=== PATIENT | female | born 1945 | race Caucasian/White ===

== ENCOUNTER 2018-08-30 13:50 | Inpatient (IN) | payer MEDICARE ==
[~2018-08-30] VITALS: Ht 154.9 cm; Wt 69.5 kg
--- NOTE | 2018-08-30 13:58 | NUR ---
PT ARRIVES TO ROOM 13 WITH SIGNIFICANT CHEST PAIN THAT RADIATED TO HER BACK. EKG DONE, NTG PROVIDED. EDP AT BEDSIDE IMMEDIATELY UPON ARRIVAL.
[2018-08-30 14:10] LABS: GFR > 60 ML/MIN (>=60 (CALC)); GFR FOR AFR.AMER. > 60 ML/MIN (>=60 (CALC))
[2018-08-30 14:14] LABS: HEMATOCRIT 41.7 % (37.0-47.0); HEMOGLOBIN 13.3 g/dl (12.0-16.0); IMMATURE GRANULOCYTES 0.3 % (0.0-5.0); MEAN CELL VOLUME 89.3 fL CALC (80.0-100.0); MEAN CORPUSCULAR HGB 28.5 pG CALC (26.0-32.0); MEAN CORPUSCULAR HGB CONC 31.9 g/L CALC (32.0-36.0); NEUT# 5.86 thou/uL (2.00-7.15); RED BLOOD COUNT 4.67 mill/uL (4.20-5.60); RED CELL DISTRI WIDTH 13.1 % (11.5-15.5)
[2018-08-30 14:32] LABS: ANION GAP 15 (6-22 (CALC)); BUN 15 mg/dL (8-23); BUN/CREATININE RATIO 23 (12-20 (CALC)); CARBON DIOXIDE 25 mmol/l (22-30); CHLORIDE 107 mmol/l (95-108); CREATININE 0.7 mg/dL (0.5-1.0); GFR > 60 ML/MIN (>=60 (CALC)); GFR FOR AFR.AMER. > 60 ML/MIN (>=60 (CALC)); POTASSIUM 4.2 mmol/l (3.5-5.1); SODIUM 142 mmol/l (137-146)
--- NOTE | 2018-08-30 15:00 | NUR ---
PT TO CT AND BACK TO R/O DISSECTION. NTG DRIP STARTED, NOW AT 20 MCG/MIN. GI COCKTAIL DID NOT HELP. MORPHINE FINALLY DID BRING SOME RELIEF. SEVERAL VISITORS ARE ROTATING AT BEDSIDE.
[2018-08-30 15:12] LABS: ALBUMIN 4.6 g/dL (3.2-5.0); ALKALINE PHOSPHATASE 79 u/l (38-126); BILIRUBIN, TOTAL 0.5 mg/dL (0.0-1.4); SGOT/AST 29 u/l (9-36); TOTAL PROTEIN 7.6 g/dL (6.3-8.2)
--- NOTE | 2018-08-30 15:22 | NUR ---
PT STATES RELIEF TO BACK WITH MORPHINE. IV NTG HAS HAD NO EFFECT ON PAIN. PT AMBULATORY TO BR WITH STANDBY ASSIST, FRIEND HELPING. PT AWARE OF PENDING ADMISSION.
[2018-08-30] MEDS ORDERED: LOSARTAN POT25 MG PO (15:46)
[2018-08-30] MEDS ORDERED: LOPRESSOR25 MG PO (15:46)
[2018-08-30] MEDS ORDERED: VIT C/ACEROL500 M1 PO (15:47)
[2018-08-30] MEDS ORDERED: MULTI VIT PO (15:47)
[2018-08-30] MEDS ORDERED: ZETIA10 MG PO (15:47)
[2018-08-30] MEDS ORDERED: B-COMPLE7 PO (15:48)
[2018-08-30] MEDS ORDERED: VITAMIN D-31000 UNI1 PO (15:48)
[2018-08-30] MEDS ORDERED: CURCUMIN 95500 MG PO (15:49)
[2018-08-30] MEDS ORDERED: FISH OIL1000 MG PO (15:50)
[2018-08-30] MEDS ORDERED: PRIMROSE OI1 PO (15:50)
[2018-08-30] MEDS ORDERED: ASPIRIN81 MG PO (15:51)
[2018-08-30 15:53] LABS: URINE BILIRUBIN - DIPSTICK NEGATIVE (NEGATIVE); URINE BLOOD DIPSTICK NEGATIVE (NEGATIVE); URINE COLOR YELLOW; URINE GLUCOSE - DIPSTICK NEGATIVE (NEGATIVE); URINE KETONE TRACE mg/dL (NEGATIVE); URINE LEUK ESTERASE NEGATIVE (NEGATIVE); URINE NITRITE - DIPSTICK NEGATIVE (Negative); URINE PH 8.5 (4.5-8.0); URINE PROTEIN - DIPSTICK NEGATIVE (NEG-TRACE); URINE UROBILINOGEN - DIPSTICK 0.2 E.U./dL (0.2)
[2018-08-30] MEDS ORDERED: MACRODANTIN100 MG PO (16:40)
--- NOTE | 2018-08-30 17:02 | NUR ---
PT AWARE OF PENDING ADMISSION AND THE EXPECTED TIME WHEN SHE COULD BE TAKEN UPSTAIRS. REMAINS AT BEDSIDE. PT UPDATED ON NEGATIVE TROPONIN LEVELS, WELL NEGATIVE UTI.
--- NOTE | 2018-08-30 18:11 | NUR ---
MEAL TRAY PROVIDED. NO CHANGE IN STATUS NOTED.
--- NOTE | 2018-08-30 19:49 | NUR ---
REPORT PROVIDED TO RONEN, TO KYRA SOON.
--- NOTE | 2018-08-30 20:30 | NUR ---
PT ARRIVES TO THE FLOOR VIA STRECHER WITH JORDY AND SPOUSE IN STABLE CONDITION. PT AMBULATED WITH STEADY GAIT TO BED. PT IS A&0 x3. ASSESMENT COMPLETED AT THIS TIME(SEE INTERVENTIONS) LUNG SOUNDS CLEAR, BOWEL SOUNDS ACTIVE, HEART SOUNDS NORMAL, NO SWELLING OR EDEMA NOTED. IV FLUSHES WELL. PT IS NOT HAVING ANY PAIN AT THIS TIME, ADVISED TO REPORT CHEST PAIN SOON POSSIBLE. CALL MCPHERSON IN REACH. WILL CONTINUE TO MONITOR.
[2018-08-30 22:47] VITALS: BP 150/69
--- NOTE | 2018-08-31 | NUR ---
PT RESTING IN BED WITH LIGHTS OFF AND EYES CLOSED. NO S/S OF DISTRESS NOTED. CALL MCPHERSON IN REACH. WILL CONTINUE TO MONITOR.
[2018-08-31 04:26] VITALS: BP 143/72
[2018-08-31 05:10] LABS: HEMATOCRIT 36.9 % (37.0-47.0); HEMOGLOBIN 11.7 g/dl (12.0-16.0); IMMATURE GRANULOCYTES 0.4 % (0.0-5.0); MEAN CELL VOLUME 89.6 fL CALC (80.0-100.0); MEAN CORPUSCULAR HGB 28.4 pG CALC (26.0-32.0); MEAN CORPUSCULAR HGB CONC 31.7 g/L CALC (32.0-36.0); NEUT# 7.06 thou/uL (2.00-7.15); RED BLOOD COUNT 4.12 mill/uL (4.20-5.60); RED CELL DISTRI WIDTH 13.2 % (11.5-15.5)
[2018-08-31 05:26] LABS: ALBUMIN 3.8 g/dL (3.2-5.0); ALKALINE PHOSPHATASE 74 u/l (38-126); AMYLASE 40 u/l (30-110); ANION GAP 14 (6-22 (CALC)); BILIRUBIN, TOTAL 0.4 mg/dL (0.0-1.4); BUN 15 mg/dL (8-23); BUN/CREATININE RATIO 27 (12-20 (CALC)); CARBON DIOXIDE 24 mmol/l (22-30); CHLORIDE 104 mmol/l (95-108); CREATININE 0.5 mg/dL (0.5-1.0); GFR > 60 ML/MIN (>=60 (CALC)); GFR FOR AFR.AMER. > 60 ML/MIN (>=60 (CALC)); LIPASE 73 u/l (23-300); MAGNESIUM 2.1 mg/dL (1.6-2.3); POTASSIUM 3.9 mmol/l (3.5-5.1); SGOT/AST 17 u/l (9-36); SODIUM 137 mmol/l (137-146); TOTAL PROTEIN 6.3 g/dL (6.3-8.2)
[2018-08-31 07:51] VITALS: BP 130/53
--- NOTE | 2018-08-31 08:15 | NUR ---
ASSESSMENT DONE. TELE IN PLACE. PT DENIES ANY PAIN AT THIS TIME. RESPS EVEN AND UNLABORED. 18 RAC THAT APPEARS HEALTHY. SAFETY PRECAUTIONS REINFORCED AND CALL LIGHT IN REACH.
--- NOTE | 2018-08-31 09:45 | NUR ---
AT BEDSIDE TO ASESS PT AND DISCUSS POC WITH PT.
--- NOTE | 2018-08-31 11:58 | NUR ---
PT IS RESTING IN BED. IN ROOM. PT STATED SHE DOES WANT TO HAVE SURGERY TOMORROW. PT DENIES ANY OTHER NEEDS AT THIS TIME. CALL LIGHT IN REACH. CALLED DR. BHAGAT RE: PT WANTS TO HAVE SURGERY TOMORROW. STATED HE WILL SET IT UP WITH THE OR.
[2018-08-31 13:10] VITALS: BP 136/70
--- NOTE | 2018-08-31 15:30 | NUR ---
PT AMBULATING IN THE HALLWAY WITH AT SIDE. NO S/S OF DISTRESS NOTED. TELE IN PLACE.
[2018-08-31 19:00] VITALS: BP 119/66
[2018-08-31 23:57] VITALS: BP 119/66
[2018-09-01] VITALS (12 sets, daily range): BP systolic 118–178; BP diastolic 49–72
[2018-09-01 04:45] LABS: HEMATOCRIT 35.8 % (37.0-47.0); HEMOGLOBIN 11.3 g/dl (12.0-16.0); IMMATURE GRANULOCYTES 0.4 % (0.0-5.0); MEAN CELL VOLUME 89.5 fL CALC (80.0-100.0); MEAN CORPUSCULAR HGB 28.3 pG CALC (26.0-32.0); MEAN CORPUSCULAR HGB CONC 31.6 g/L CALC (32.0-36.0); NEUT# 3.59 thou/uL (2.00-7.15); RED CELL DISTRI WIDTH 13.1 % (11.5-15.5)
[2018-09-01 05:13] LABS: ALBUMIN 3.6 g/dL (3.2-5.0); ALKALINE PHOSPHATASE 70 u/l (38-126); AMYLASE 45 u/l (30-110); ANION GAP 12 (6-22 (CALC)); BILIRUBIN, TOTAL 0.6 mg/dL (0.0-1.4); BUN 11 mg/dL (8-23); BUN/CREATININE RATIO 17 (12-20 (CALC)); CARBON DIOXIDE 25 mmol/l (22-30); CHLORIDE 108 mmol/l (95-108); CREATININE 0.6 mg/dL (0.5-1.0); GFR > 60 ML/MIN (>=60 (CALC)); GFR FOR AFR.AMER. > 60 ML/MIN (>=60 (CALC)); LIPASE 54 u/l (23-300); MAGNESIUM 2.2 mg/dL (1.6-2.3); POTASSIUM 3.8 mmol/l (3.5-5.1); SGOT/AST 19 u/l (9-36); SODIUM 140 mmol/l (137-146)
--- NOTE | 2018-09-01 07:55 | NUR ---
PT SITTING IN THE SIDE OF THE BED. ASSESSMENT DONE . TELE IN PLACE. PT DENIES PAIN AT THIS TIME. RESPS EVEN AND UNLABORED. D51/2NS 75ML/HR INFUSING WELL. PT NPO. PT DENIES ANY OTHER NEEDS AT THIS TIME. CALL LIGHT IN REACH.
--- NOTE | 2018-09-01 11:05 | NUR ---
PT WENT TO OR VIA STRETCHER BY KWASI FLOWERS. AT SIDE.
--- NOTE | 2018-09-01 13:52 | NUR ---
PT BACK FROM OR VIA STRETCHER BY KWASI HENDERSON AND REPORT RECEIVED FROM HER. PT TRANSFER FROM STRETCHER TO BED. PT STATED SHE HAS PAIN IN HER SHOULDER FROM GAS. PT STATED THAT SHE TURNS TO SIDE TO HELP WITH THE GAS. ICE CHIPS PROVIDED. PT DENIES ANY OTHER NEEDS AT THIS TIME. IN ROOM AND CALL LIGHT IN REACH.
--- NOTE | 2018-09-01 15:27 | NUR ---
PT IS RESTING IN BED . FOUR INCISION IN ABD WITH DERMABOND IN PLACE. PT STATED PAIN FROM THE GAS IS LESS. ICE CHIPS AND RADHA SODA PROVIDED. PT DENIES ANY NEEDS AT THIS TIME. CALL LIGHT IN REACH.
--- NOTE | 2018-09-01 16:30 | NUR ---
ASSISTED PT TO THE BATHROOM THEN BACK TO BED. ONE OUT OF THE FOUR INCISION WAS BLEEDING SMALL AMOUNT DRESSING APPLIED FOR PRESSURE. PT DENIES ANY OTHER NEEDS AT THIS TIME. CALL LIGHT IN REACH.
--- NOTE | 2018-09-01 19:37 | NUR ---
REPORT FROM AMRIE VILLALPANDO. PT SITTING UP IN BED WITH VISITOR AT BEDSIDE. PT ALERT AND ORIENTED. INCISIONS CDI. DRESSING TO UMBILICAL INCISION CDI. ASSISTED PT TO BATHROOM AT THIS TIME PT AMBULATED WITH STEADY GAIT. C/O RIGHT FLANK PAIN 09/29. MEDICATED AT THIS TIME WITH PRN PAIN MEDICATION. PT ASSISTED BACK TO BED. IV SITE APPEARS HEALTHY. IV FLUIDS INFUSING WITHOUT DIFFICULTY. DISCUSSED POC. PT VERBALIZED UNDERSTANDING. PT TOLERATED MEAL AND PO FLUIDS. SCDS IN PLACE. CALL LIGHT WITHIN REACH. EDUCATED PT ON SAFETY. WILL CONTINUE TO MONITOR.
--- NOTE | 2018-09-01 21:46 | NUR ---
COT PROVIDED TO CAREGIVER AT THIS TIME.
--- NOTE | 2018-09-02 00:36 | NUR ---
ASSISTED PT TO BATHROOM. PT VOIDED WITHOUT DIFFICULTY. ASSISTED BACK TO BED. SCDS APPLIED. MEDICATED FOR PAIN. IV ABT INITIATED. INCISIONS CDI NO REDNESS OR DRAINAGE NOTED. CALL LIGHT WITHIN REACH. WILL CONTINUE TO MONITOR.
[2018-09-02 00:41] VITALS: BP 128/68
--- NOTE | 2018-09-02 03:45 | NUR ---
PT IV SITE APPEARS TO BE LEAKING. J-LOOP APPARENTLY LOOSE, TIGHTENED AT THIS TIME. NEW DRESSING APPLIED. ASSISTED PT TO BATHROOM PT VOIDED WITHOUT DIFFICULTY. ASSISTED BACK TO BED. CALL LIGHT WITHIN REACH. WILL CONTINUE TO MONITOR.
[2018-09-02 03:46] VITALS: BP 128/66
[2018-09-02 06:29] LABS: HEMATOCRIT 32.9 % (37.0-47.0); HEMOGLOBIN 10.4 g/dl (12.0-16.0); IMMATURE GRANULOCYTES 0.3 % (0.0-5.0); MEAN CELL VOLUME 90.6 fL CALC (80.0-100.0); MEAN CORPUSCULAR HGB 28.7 pG CALC (26.0-32.0); MEAN CORPUSCULAR HGB CONC 31.6 g/L CALC (32.0-36.0); NEUT# 3.95 thou/uL (2.00-7.15); RED BLOOD COUNT 3.63 mill/uL (4.20-5.60)
[2018-09-02 06:46] LABS: ALBUMIN 3.3 g/dL (3.2-5.0); ALKALINE PHOSPHATASE 87 u/l (38-126); ANION GAP 9 (6-22 (CALC)); BILIRUBIN, TOTAL 0.5 mg/dL (0.0-1.4); BUN 7 mg/dL (8-23); BUN/CREATININE RATIO 10 (12-20 (CALC)); CARBON DIOXIDE 29 mmol/l (22-30); CHLORIDE 107 mmol/l (95-108); CREATININE 0.6 mg/dL (0.5-1.0); GFR > 60 ML/MIN (>=60 (CALC)); GFR FOR AFR.AMER. > 60 ML/MIN (>=60 (CALC)); LIPASE 82 u/l (23-300); MAGNESIUM 2.1 mg/dL (1.6-2.3); POTASSIUM 4.1 mmol/l (3.5-5.1); SODIUM 140 mmol/l (137-146); TOTAL PROTEIN 5.6 g/dL (6.3-8.2)
[2018-09-02 06:47] LABS: AMYLASE < 30 u/l (30-110)
[2018-09-02 06:48] LABS: SGOT/AST 159 u/l (9-36)
[2018-09-02 07:45] VITALS: BP 151/75
--- NOTE | 2018-09-02 07:45 | NUR ---
ASSESSMENT IS COMPLETED: IV SITE IS FREE FROM REDNESS OR EDEMA. HR IS REG, PULSES ARE STRONG X4, ABD IS SOFT WITH ACTIVE BS. BREATH SOUNDS ARE CLEAR,BILATERALLY, NO C/O SOB, DRESSING ON ABD IS CDI. CONTINUE TO OSEBRVE AND MONITOR. CALL MCPHERSON WITHIN REACH.
[2018-09-02] MEDS ORDERED: OXYCODONE/ACETA1 TA8 PO (09:43)
[2018-09-02 11:10] VITALS: BP 143/59
--- NOTE | 2018-09-02 12:00 | NUR ---
PT IS RELAXING IN BED WITH NO DISTRESS NOTED IV SITE IS FREE FROM REDNESS OR EDEMA. FAMILY IN THE ROOM. WAITING ON DISCHARGE INSTRUCTIONS
--- NOTE | 2018-09-02 14:20 | NUR ---
DISCHARGE INSTRUCTIONS GIVEN AND VERBALIZED UNDERSTANDING. IV SITE DISCONTINUED CATHETER INTACT. ALL PAPERS AND BELONGINGS GIVEN. CONTINUE TO OSEBRVE AND MONITOR.
== END 2018-09-02 14:17 | disposition home or self-care (01) | DRG 419 ==
LOC: ED 13:50 → ED-I 15:00 → ED 15:20 → MS2 15:21 → ED-I 15:21 → MS2 19:48
PROVIDERS: Family Medicine; ADMIT Internal Medicine Nephrology; ATTEND Internal Medicine Nephrology
PROC: 0FT44ZZ Resection of Gallbladder, Percutaneous Endoscopic Approach (ICD-10-PCS; principal; 2018-09-01)
DX: K80.00 Calculus of gallbladder with acute cholecystitis without obstruction (principal); I10 Essential (primary) hypertension; E78.5 Hyperlipidemia, unspecified; F41.1 Generalized anxiety disorder; E55.9 Vitamin D deficiency, unspecified
CPT/HCPCS: G0378; J0131; J1650; J2270; J2710; Q9967

== ENCOUNTER → 2018-09-13 | Outpatient (REF) | payer MEDICARE ==
[~2018-09-13] MED LIST: ASPIRIN81 MG PO; B-COMPLE7 PO; CURCUMIN 95500 MG PO; FISH OIL1000 MG PO; LOPRESSOR25 MG PO; LOSARTAN POT25 MG PO; MACRODANTIN100 MG PO; MULTI VIT PO; OXYCODONE/ACETA1 TA8 PO; PRIMROSE OI1 PO; VIT C/ACEROL500 M1 PO; VITAMIN D-31000 UNI1 PO; ZETIA10 MG PO
[2018-09-13 11:21] VITALS: BP 155/67
== END ==
LOC: FIORUCCI 09:15
PROVIDERS: ATTEND Surgery
DX: Z48.01 Encounter for change or removal of surgical wound dressing (principal)

== ENCOUNTER 2020-09-13 09:03 | Emergency (ER) | payer MEDICARE ==
[~2020-09-13] VITALS: Ht 154.9 cm; Wt 72.2 kg
[2020-09-13 10:29] LABS: HEMATOCRIT 36.7 % (37.0-47.0); HEMOGLOBIN 11.8 g/dl (12.0-16.0); IMMATURE GRANULOCYTES 0.2 % (0.0-5.0); MEAN CORPUSCULAR HGB 28.3 pG CALC (26.0-32.0); MEAN CORPUSCULAR HGB CONC 32.2 g/dL CAL (32.0-36.0); NEUT# 3.08 thou/uL (2.00-7.15); RED BLOOD COUNT 4.17 mill/uL (4.20-5.60); RED CELL DISTRI WIDTH 13.1 % (11.5-15.5)
[2020-09-13 10:50] LABS: ALKALINE PHOSPHATASE 98 u/l (38-126); ANION GAP 11 (6-22 (CALC)); BILIRUBIN, TOTAL 0.7 mg/dL (0.0-1.4); BUN 13 mg/dL (8-23); BUN/CREATININE RATIO 22 (12-20 (CALC)); CARBON DIOXIDE 27 mmol/l (22-30); CHLORIDE 101 mmol/l (95-108); CREATININE 0.6 mg/dL (0.5-1.0); GFR > 60 ML/MIN (>=60 (CALC)); GFR FOR AFR.AMER. > 60 ML/MIN (>=60 (CALC)); LIPASE 80 u/l (23-300); POTASSIUM 3.3 mmol/l (3.5-5.1); SGOT/AST 41 u/l (9-36); SODIUM 136 mmol/l (137-146)
[2020-09-13 10:57] LABS: ALBUMIN 4.1 g/dL (3.2-5.0); TOTAL PROTEIN 7.1 g/dL (6.3-8.2)
[2020-09-13 10:58] LABS: ACT PARTIAL THROMBO TIME 29.6 SECONDS (20.0-32.5); INTERNATIONAL NORMALIZED RATIO 1.1 RATIO (0.7-1.3)
[2020-09-13] MEDS ORDERED: XARELTO10 MG PO (12:03)
[2020-09-13 13:45] LABS: URINE BILIRUBIN - DIPSTICK NEGATIVE (NEGATIVE); URINE BLOOD DIPSTICK NEGATIVE (NEGATIVE); URINE COLOR YELLOW; URINE GLUCOSE - DIPSTICK NEGATIVE (NEGATIVE); URINE KETONE 15 mg/dL (NEGATIVE); URINE LEUK ESTERASE NEGATIVE (NEGATIVE); URINE PH 6.5 (4.5-8.0); URINE PROTEIN - DIPSTICK NEGATIVE (NEG-TRACE); URINE UROBILINOGEN - DIPSTICK 0.2 E.U./dL (0.2)
[2020-09-13 13:47] LABS: URINE NITRITE - DIPSTICK NEGATIVE (Negative)
[2020-09-13 14:08] VITALS: BP 156/68
== END 2020-09-13 14:35 | disposition home or self-care (01) ==
LOC: ED 09:03
DX: U07.1 COVID-19 (principal); E86.0 Dehydration; R53.1 Weakness; I48.91 Unspecified atrial fibrillation; I10 Essential (primary) hypertension; E78.5 Hyperlipidemia, unspecified; Z79.01 Long term (current) use of anticoagulants; Z87.01 Personal history of pneumonia (recurrent)

== ENCOUNTER 2024-07-18 10:51 | Emergency (ER) | payer MEDICARE ==
[~2024-07-18] VITALS: Ht 154.9 cm; Wt 76.0 kg
[~2024-07-18 10:51] MED LIST changes: +XARELTO10 MG PO
[2024-07-18 13:07] LABS: BASO% 0.6 % (0-3); HEMOGLOBIN 11.6 g/dl (12.0-16.0); IMMATURE GRANULOCYTES 0.4 % (0.0-5.0); LYMPH% 34.2 % (15-41); MEAN CELL VOLUME 89.6 fL CALC (80.0-100.0); MEAN CORPUSCULAR HGB 28.9 pG CALC (26.0-32.0); MEAN CORPUSCULAR HGB CONC 32.2 g/dL CAL (32.0-36.0); MONO% 8.4 % (2-13); NEUT# 3.7 thou/uL (2.00-7.15); NEUT% 52.4 % (42-76); RED BLOOD COUNT 4.02 mill/uL (4.20-5.60)
[2024-07-18 13:18] LABS: ALBUMIN 3.6 g/dL (3.2-5.0); ALKALINE PHOSPHATASE 56 u/l (38-126); ANION GAP 7 (6-22 (CALC)); BUN 12 mg/dL (8-23); BUN/CREATININE RATIO 21 (12-20 (CALC)); CARBON DIOXIDE 29 mmol/l (22-30); CHLORIDE 109 mmol/l (95-108); CREATININE 0.6 mg/dL (0.5-1.0); ESTIMATED GFR 92 ML/MIN (>=90 (CALC)); POTASSIUM 4.1 mmol/l (3.5-5.1); SGOT/AST 24 u/l (9-36); SODIUM 141 mmol/l (137-146); TOTAL PROTEIN 6.3 g/dL (6.3-8.2)
[2024-07-18 13:27] LABS: BILIRUBIN, TOTAL 0.3 mg/dL (0.02-1.3)
[2024-07-18] MEDS ORDERED: LOSARTAN Potassium 50 MG/TAB PO ONE (14:15)
[2024-07-18 15:26] VITALS: BP 180/77
[2024-07-18] MEDS ORDERED: COZAAR50 MG PO (15:27)
== END 2024-07-18 15:36 | disposition home or self-care (01) ==
LOC: ED 10:51
PROVIDERS: Nurse Practitioner
DX: I10 Essential (primary) hypertension (principal); I48.91 Unspecified atrial fibrillation; E78.5 Hyperlipidemia, unspecified

== ENCOUNTER 2024-08-05 20:42 | Observation (INO) | payer MEDICARE ==
[2024-08-05] VITALS (7 sets, daily range): BP systolic 114–184; BP diastolic 56–88
[~2024-08-05] VITALS: Ht 154.9 cm; Wt 72.6 kg
[~2024-08-05 20:42] MED LIST changes: +COZAAR50 MG PO
[2024-08-05] MEDS ORDERED: ALUM & MAG HYDROX-SIMETHICONE 30 ML PO ONE (21:00)
[2024-08-05] MEDS ORDERED: LIDOCAINE VISCOUS 2% 15 ML UDC PO ONE (21:00)
[2024-08-05] MEDS ORDERED: MORPHINE SULFATE 4 MG/ML VIAL IV ONE (21:00)
[2024-08-05] MEDS ORDERED: ASPIRIN 81 MG/TAB PO ONE (21:00)
[2024-08-05] MEDS ORDERED: SODIUM CHLORIDE 0.9% 1,000 ML IV ONE (21:00)
[2024-08-05] MEDS ORDERED: NITROGLYCERIN 0.4 MG/TAB SL ONE (21:00)
[2024-08-05] MEDS ORDERED: PROMETHAZINE HCL 25 MG/ML AMP IV ONE (21:00)
[2024-08-05 21:16] LABS: BASO% 0.4 % (0-3); EOS% 3.1 % (0-8); HEMATOCRIT 38.4 % (37.0-47.0); HEMOGLOBIN 12.4 g/dl (12.0-16.0); IMMATURE GRANULOCYTES 0.6 % (0.0-5.0); LYMPH% 35.1 % (15-41); MEAN CELL VOLUME 89.7 fL CALC (80.0-100.0); MEAN CORPUSCULAR HGB CONC 32.3 g/dL CAL (32.0-36.0); MONO% 6.8 % (2-13); NEUT# 6.54 thou/uL (2.00-7.15); RED BLOOD COUNT 4.28 mill/uL (4.20-5.60); RED CELL DISTRI WIDTH 13.2 % (11.5-15.5)
[2024-08-05 21:40] LABS: ALBUMIN 4.1 g/dL (3.2-5.0); ALKALINE PHOSPHATASE 65 u/l (38-126); ANION GAP 11 (6-22 (CALC)); BILIRUBIN, TOTAL 0.4 mg/dL (0.02-1.3); BUN 23 mg/dL (8-23); BUN/CREATININE RATIO 28 (12-20 (CALC)); CARBON DIOXIDE 27 mmol/l (22-30); CHLORIDE 105 mmol/l (95-108); CREATININE 0.8 mg/dL (0.5-1.0); ESTIMATED GFR 76 ML/MIN (>=90 (CALC)); LIPASE 105 u/l (23-300); POTASSIUM 3.7 mmol/l (3.5-5.1); SGOT/AST 30 u/l (9-36); SODIUM 139 mmol/l (137-146)
[2024-08-05 21:50] LABS: ACT PARTIAL THROMBO TIME 26.9 SECONDS (20.0-32.5); D-DIMER 0.27 mg/L (0.19-0.60)
[2024-08-05 21:52] LABS: PROTHROMBIN TIME 10.5 SECONDS (9.0-12.5)
[2024-08-06] VITALS (7 sets, daily range): BP systolic 113–153; BP diastolic 44–74
[2024-08-06] MEDS ORDERED: NITROGLYCERIN 2% OINT UD 1 GM/PAK TD SCH
[2024-08-06] MEDS ORDERED: FAMOTIDINE 10MG/ML 2ML SDV IV PRN (01:01)
[2024-08-06] MEDS ORDERED: IBUPROFEN 800 MG/TAB PO PRN (01:06)
[2024-08-06] MEDS ORDERED: ONDANSETRON HCl 4 MG/2 ML SDV IV PRN (01:07)
[2024-08-06] MEDS ORDERED: ONDANSETRON 4 MG/TAB ODT PO PRN (01:07)
[2024-08-06] MEDS ORDERED: Polyethylene Glycol 3350 17 GM/PKT PO PRN (01:08)
[2024-08-06] MEDS ORDERED: ENOXAPARIN SODIUM 40 MG/0.4 ML SYR SC SCH (01:15)
[2024-08-06] MEDS ORDERED: ALUM & MAG HYDROX-SIMETHICONE 30 ML PO PRN ×2 (01:15→23:55)
[2024-08-06] MEDS ORDERED: LOSARTAN POTASS1 TA4 (03:28)
[2024-08-06] MEDS ORDERED: ASPIRIN 81 MG/TAB PO SCH (09:00)
[2024-08-06] MEDS ORDERED: METOPROLOL100 M1 PO (09:11)
[2024-08-06] MEDS ORDERED: MEDDOSEPAK PO (10:08)
[2024-08-06] MEDS ORDERED: TRAMADOL HYDROC50 M1 PO (10:09)
[2024-08-06] MEDS ORDERED: LOSARTAN Potassium 50 MG/TAB PO SCH (10:30)
[2024-08-06] MEDS ORDERED: METOPROLOL SUCCINATE 100 MG/TAB PO SCH (10:30)
[2024-08-07] MEDS ORDERED: ENOXAPARIN SODIUM 40 MG/0.4 ML SYR SC SCH
[2024-08-07] MEDS ORDERED: RIVAROXABAN 20 MG TAB PO SCH (09:00)
== END 2024-08-06 11:10 | disposition home or self-care (01) ==
LOC: ED 20:42 → ED-I 23:48 → ED 08-06 00:01 → MS2 08-06 00:02
PROVIDERS: Family Medicine; ADMIT Internal Medicine; ATTEND Internal Medicine
DX: R07.9 Chest pain, unspecified (principal); I10 Essential (primary) hypertension; I48.91 Unspecified atrial fibrillation; E78.5 Hyperlipidemia, unspecified
CPT/HCPCS: G0378; J1650; J2550